=== PATIENT | male | born 1970 | race Caucasian/White ===

== ENCOUNTER 2018-04-18 02:36 | Emergency (ER) | payer OTHER ==
[2018-04-18 02:42] VITALS: BP 184/88; PULSE 135; RESP 17; TEMP 97.7
[2018-04-18] MEDS ORDERED: SODIUM CHLORIDE 0.9% 1,000 ML IV ONE (02:59)
[2018-04-18] MEDS ORDERED: MORPHINE SULFATE 4 MG/ML SYRINGE IV STA (02:59)
--- NOTE | 2018-04-18 04:04 | ED ---
Fall HPI - General Chief Complaint: Fall Stated Complaint: Facial Injuries, Fall Time Seen by Provider: 04/18/18 02:47 Source: EMS Mode of arrival: EMS Limitations: no limitations - History of Present Illness Initial Comments: This patient is a 47-year-old man who presents here as a transfer from the other hospital in [facility], to arrange [facility] [place] surgical care. The patient relates that he has been having a flareup of his COPD for about the past 10 days. Tonight he had a coughing episode and passed out. When he woke up he was lying on his patio and had fallen and struck his face. The patient went to the other hospital in [facility] where he was found to have mandible fractures and transferred here. The patient is denying other injuries. He is accompanied by a CT disc that has CAT scan of the cervical spine, and chest as well as the facial bones. He had been given a dose of Unasyn for the facial fractures. The patient states that he is certain his tetanus status is up-to-date. MD Complaint: fall -: hour(s) Fall From: standing When Fall Occurred: 1-3 hours [employer] Fall Witnessed: no Place Fall Occurred: home Loss of Consciousness: yes Prolonged Down Time?: no Symptoms Prior to Fall: other (Coughing) Location: face Severity: moderate Quality: aching Context: other - Related Data Previous Rx's Medication Instructions Recorded Acetaminophen-Codeine 300-30mg 1 tab PO Q6H PRN #30 tablet 06/18/15 [Tylenol #3] Naproxen [Naprosyn] 500 mg PO Q12HR #60 tab 06/18/15 Allergies Allergy/AdvReac Type Severity Reaction Status Date / Time No Known Allergies Allergy Verified 06/18/15 14:13 Review of Systems ROS Statement: Those systems with pertinent positive or pertinent negative responses have been documented in the HPI. ROS Other: All systems not noted in ROS Statement are negative. Constitutional: Denies: fever, weakness Eyes: Denies: eye pain, vision change ENT: Denies: ear pain, epistaxis Respiratory: Reports: as per HPI, cough, wheezes. Denies: dyspnea, hemoptysis Cardiovascular: Reports: syncope. Denies: chest pain, palpitations, orthopnea, edema Gastrointestinal: Denies: abdominal pain, vomiting, diarrhea Musculoskeletal: Denies: back pain Skin: Denies: rash Neurological: Denies: headache, weakness, numbness, paresthesias, confusion Hematological/Lymphatic: Denies: easy bleeding Past Medical History Past Medical History: Asthma, COPD Additional Past Medical History / Comment(s): ephysema History of Any Multi-Drug Resistant Organisms: None Reported Past Surgical History: No Surgical Hx Reported Past Psychological History: No Psychological Hx Reported Smoking Status: Current every day smoker Past Alcohol Use History: Occasional Past Drug Use History: Marijuana General Exam Limitations: no limitations General appearance: alert, in no apparent distress Head exam: Present: normocephalic, other (Patient has swelling over the bilateral mandible as well as the left zygoma.) Eye exam: Present: PERRL, EOMI, periorbital swelling (left). Absent: scleral icterus, conjunctival injection, nystagmus, periorbital tenderness ENT exam: Present: mucous membranes dry, TM's normal bilaterally, normal external ear exam, other (Lower lip laceration.) Neck exam: Present: normal inspection, full ROM. Absent: tenderness, meningismus Respiratory exam: Present: wheezes. Absent: respiratory distress, rales, rhonchi, stridor, chest wall tenderness, accessory muscle use, decreased breath sounds Cardiovascular Exam: Present: normal rhythm, tachycardia, normal heart sounds. Absent: systolic murmur, diastolic murmur, rubs, gallop GI/Abdominal exam: Present: soft. Absent: distended, tenderness, guarding, rebound, rigid, mass Extremities exam: Present: normal inspection, normal capillary refill. Absent: pedal edema, calf tenderness Back exam: Absent: CVA tenderness (R), CVA tenderness (L), vertebral tenderness Neurological exam: Present: alert, oriented X3, CN II-XII intact Skin exam: Present: warm, dry, intact, normal color. Absent: rash Course Vital Signs 04/18/18 02:37 Temperature 97.7 F Pulse Rate 135 H Respiratory 17 Rate Blood Pressure 184/88 O2 Sat by Pulse 96 Oximetry Medical Decision Making - Medical Decision Making Patient is a 47-year-old man who had a coughing episode which appears to cause syncope and in the fall he has complex mandible fracture. I reviewed the computed tomography scan and then discussed with our maxillofacial surgeon who states that he does not perform open fixations, and that this therefore should probably be transferred to higher level of care. Case is also been discussed with Dr. jones of trauma who agrees. I then discussed case with at [facility] who after discussion with the traumatologist there does agree for transfer there. This is discussed with the patient who is in agreement. Disposition Clinical Impression: Fall, Syncope, Mandible open fracture, Zygomatic fracture, left side, initial encounter for closed fracture Disposition: OTHER INSTITUTION NOT DEFINED Condition: Good Referrals: Jose Lr MD [Primary Care Provider] - 1-2 days
== END 2018-04-18 04:12 | disposition other institution (70) ==
LOC: EC 02:36
DX: S02.609B Fracture of mandible, unspecified, initial encounter for open fracture (principal); S02.40FA Zygomatic fracture, left side, initial encounter for closed fracture; R05 Cough; J44.9 Chronic obstructive pulmonary disease, unspecified; R55 Syncope and collapse; F17.200 Nicotine dependence, unspecified, uncomplicated; W01.198A Fall on same level from slipping, tripping and stumbling with subsequent striking against other object, initial encounter; Y92.009 Unspecified place in unspecified non-institutional (private) residence as the place of occurrence of the external cause
CPT/HCPCS: 99285; 96374; 96361; J2270